=== PATIENT | male | born 2000 | race Caucasian/White ===

== ENCOUNTER 2024-07-30 23:17 | Emergency (ER) | payer OTHER ==
[~2024-07-30] VITALS: Ht 180.3 cm; Wt 108.9 kg
[2024-07-31] MEDS ORDERED: CYCL5TAB PO (02:44)
[2024-07-31] MEDS ORDERED: CYCLOBENZAPRINE 10 MG TABLET ONE (02:50)
[2024-07-31] MEDS: CYCLOBENZAPRINE 10 MG TABLET PO ONE (02:52)
[2024-07-31] MEDS ORDERED: IBUPROFEN 600 MG TABLET ONE (02:53)
[2024-07-31] MEDS: IBUPROFEN 600 MG TABLET PO ONE (02:54)
[2024-07-31 02:59] VITALS: BP 133/76; TEMP 98.5; O2SAT 98
== END 2024-07-31 02:59 | disposition home or self-care (01) ==
LOC: ER 23:28
DX: M54.2 Cervicalgia (principal); M54.6 Pain in thoracic spine; V43.52XA Car driver injured in collision with other type car in traffic accident, initial encounter; Y93.89 Activity, other specified; Y92.488 Other paved roadways as the place of occurrence of the external cause; Y99.8 Other external cause status